=== PATIENT | male | born 1955 | race Caucasian/White ===

== ENCOUNTER 2023-10-05 18:27 | Emergency (ER) | payer MEDICARE, BC ==
[~2023-10-05] VITALS: Ht 167.6 cm; Wt 81.6 kg
[2023-10-05] MEDS ORDERED: AMLO5TAB4 PO (18:45)
[2023-10-05] MEDS ORDERED: ATOR20TA PO (18:45)
[2023-10-05] MEDS ORDERED: MISCELLANEOUS MED XX ONE ×2 (19:15→19:30)
[2023-10-05] MEDS ORDERED: BUPIVACAINE PF 0.5% 30 ML VIAL ONE (19:25)
[2023-10-05 20:04] VITALS: BP 146/89; O2SAT 98
== END 2023-10-05 20:04 | disposition home or self-care (01) ==
LOC: ER 18:35
DX: M17.11 Unilateral primary osteoarthritis, right knee (principal); M25.461 Effusion, right knee; Z79.899 Other long term (current) drug therapy
CPT/HCPCS: 99284; 20610; 73564; J3490; A4606; A4663

== ENCOUNTER 2024-03-19 09:53 | Emergency (ER) | payer MEDICARE, BC ==
[~2024-03-19] VITALS: Ht 167.6 cm; Wt 81.6 kg
[~2024-03-19 09:53] MED LIST: AMLO5TAB4 PO; ATOR20TA PO
[2024-03-19] MEDS ORDERED: TDAP DIPH,PERTUSS,TET VAC/PF 0.5 ML DISP.SYRIN IM ONE (10:38)
[2024-03-19] MEDS: TDAP DIPH,PERTUSS,TET VAC/PF 0.5 ML DISP.SYRIN IM ONE (10:44)
[2024-03-19 12:27] VITALS: BP 151/70; O2SAT 99
== END 2024-03-19 12:28 | disposition home or self-care (01) ==
LOC: ER 09:53
DX: S91.112A Laceration without foreign body of left great toe without damage to nail, initial encounter (principal); S63.612A Unspecified sprain of right middle finger, initial encounter; Z79.899 Other long term (current) drug therapy; W18.39XA Other fall on same level, initial encounter; Y93.89 Activity, other specified; Y92.89 Other specified places as the place of occurrence of the external cause; Y99.8 Other external cause status
CPT/HCPCS: 73140; 73660; 90715; A4606; A4663

== ENCOUNTER 2025-06-26 15:04 | Emergency (ER) | payer MEDICARE, BC ==
[~2025-06-26] VITALS: Ht 167.6 cm; Wt 81.6 kg
[2025-06-26 15:04] VITALS: BP 185/86
[2025-06-26] MEDS ORDERED: ASPIRIN 325 MG TABLET ONE (15:51)
[2025-06-26 15:58] LABS: CREATININE 0.8 mg/dL (0.6-1.3); SODIUM SERUM 142 mmol/L (136-145); UREA NITROGEN, BLOOD 17 mg/dL (7-18)
[2025-06-26] MEDS: ASPIRIN 325 MG TABLET PO ONE (16:02)
[2025-06-26 16:04] LABS: ASPARTATE AMINOTRANSFERASE 21 U/L (15-37); TOTAL PROTEIN, SERUM 7.3 g/dL (6.4-8.2)
[2025-06-26] MEDS ORDERED: NITROGLYCERIN OINT 1 GM PACKET TP ONE ×2 (16:34→16:39)
[2025-06-26] MEDS: NITROGLYCERIN OINT 1 GM PACKET TP ONE (16:36)
[2025-06-26 16:42] LABS: PLATELET COUNT (AUTO) 139 K/uL (152-348); RED BLOOD CELL COUNT(AUTO) 4.55 MIL/uL (4.06-5.63); RED CELL DISTRIBUTION WIDTH 13.8 % (12.1-16.2); WHITE BLOOD COUNT (AUTO) 4.9 K/uL (3.6-10.2)
[2025-06-26 16:45] LABS: *BILIRUBIN,URIN NEGATIVE (NEGATIVE); *BLOOD, URINE NEGATIVE (NEGATIVE); *CLARITY,URINE CLEAR (CLEAR); *COLOR,URINE YELLOW (YELLOW); *KETONES,URINE NEGATIVE (NEGATIVE); *PROTEIN,URINE NEGATIVE (NEGATIVE); *UROBILINOGEN,URINE 0.2 E.U./dl (NORMAL); LEUKOCYTE ESTERASE ,URINE NEGATIVE (NEGATIVE); NITRITE, URINE NEGATIVE (NEGATIVE); UGLUCOSE NEGATIVE (NEGATIVE)
[2025-06-26 16:58] LABS: *AMPHETAMINE, URINE NEGATIVE (NEGATIVE); *BARBITURATE, URINE NEGATIVE (NEGATIVE); *BENZODIAZEPINE, URINE NEGATIVE (NEGATIVE); *CANNABINOID, URINE NEGATIVE (NEGATIVE); *COCCAINE, URINE NEGATIVE (NEGATIVE); *OPIATE, URINE NEGATIVE (NEGATIVE); *PHENCYCLIDINE SCREEN,URINE NEGATIVE (NEGATIVE); FENTANYL, URINE NEGATIVE (NEGATIVE)
[2025-06-26] MEDS ORDERED: ACETAMINOPHEN 325 MG TABLET PO PRN (18:00)
[2025-06-26] MEDS ORDERED: MAGNESIUM HYDROXIDE 30 ML LIQUID UDC PO PRN (18:00)
[2025-06-26] MEDS ORDERED: ONDANSETRON 4 MG/2 ML VIAL IV PRN (18:00)
[2025-06-26] MEDS ORDERED: DOSING PER PHARMACY-ENOXAPARIN XX PRN (18:15)
[2025-06-26] MEDS ORDERED: NITROGLYCERIN 0.4 MG/TAB BOTTLE SL PRN (18:15)
[2025-06-26] MEDS ORDERED: MORPHINE SULFATE 2 MG/1 ML DISP.SYRIN IV PRN (18:15)
[2025-06-26] MEDS ORDERED: ENOXAPARIN SODIUM 80 MG/0.8 ML DISP.SYRIN SQ SCH (18:20)
[2025-06-26 20:04] VITALS: BP 152/89; O2SAT 95
[2025-06-26] MEDS ORDERED: ATORVASTATIN 20 MG TABLET PO SCH (21:00)
[2025-06-27] MEDS ORDERED: PANTOPRAZOLE SODIUM 40 MG TABLET.DR PO SCH (07:00)
[2025-06-27] MEDS ORDERED: ASPIRIN EC 81 MG TABLET.DR PO SCH (09:00)
== END 2025-06-26 19:45 | disposition left against medical advice (07) ==
LOC: ER 15:04
DX: I21.4 Non-ST elevation (NSTEMI) myocardial infarction (principal); E78.5 Hyperlipidemia, unspecified; I10 Essential (primary) hypertension; Z79.899 Other long term (current) drug therapy
CPT/HCPCS: 36415; 71045; 84484; 85025; 85730; A4606; A4663